=== PATIENT | female | born 2000 | race Two or more races ===

== ENCOUNTER 2024-07-24 04:54 | Inpatient (IN) | payer MEDICAID ==
[~2024-07-24] VITALS: Ht 165.1 cm; Wt 74.8 kg
[2024-07-24] MEDS: OXYTOCIN 10UNIT/ML 1ML VIAL ONE (05:09)
[2024-07-24] MEDS ORDERED: WITCH HAZEL-GLYCERIN PAD TOP ONE (05:10)
[2024-07-24] MEDS ORDERED: PHISODERM TOP SOLN 240ML BTL TOP ONE (05:10)
[2024-07-24] MEDS ORDERED: DERMOPLAST 60ML BOTTLE TOP ONE (05:10)
[2024-07-24] MEDS: LIDOCAINE 2%HCL (LOCAL ANESTH.) INJ 10ml MDV ONE (05:10)
[2024-07-24] MEDS ORDERED: LACT. RINGERS/OXYTOCIN 20UNITS 1,000 ML IV ONE (05:10)
[2024-07-24] MEDS: PENICILLIN G POT 5MIL/D5 50ML 50 ML IV ONE ×2 (05:11→05:15)
[2024-07-24] MEDS ORDERED: DERMOPLAST 60ML BOTTLE TOP PRN (05:15)
[2024-07-24] MEDS ORDERED: WITCH HAZEL-GLYCERIN PAD TOP PRN (05:15)
[2024-07-24] MEDS ORDERED: LIDOCAINE 2%HCL (LOCAL ANESTH.) INJ 20ML MDV IJ PRN (05:15)
[2024-07-24] MEDS ORDERED: LACTATED RINGER'S 1,000 ML IV SCH (05:15)
[2024-07-24] MEDS ORDERED: PHISODERM TOP SOLN 240ML BTL TOP PRN (05:15)
--- NOTE | 2024-07-24 05:45 | DVHHP2 ---
OB CC & HPI Date Date of Admission: Jul 24, 2024 Patient Identification: : 1 Para: 0 EDC: Jul 24, 2024 EGA: 40w 0d Chief Complaints: Reason for admission: active labor Other reason for admission: Rupture of membranes>18hours Admission Nurse Assessment Rev: Yes History of Present Complaints 23yo G1,0000 EDC 07/24/[address] to r/o labor. Reports contractions started 10am 07/23/24, became stronger and regular 2-3hours ago. Was discharged home from another hospital at 1am; VE then was 2cm. Contractions beame stronger and less than 5minutes apart at 1:30am She reports she had bloody show at 0430 on 07/23/24 and leakage of fluid that started at 10am on 07/23/24 She reports active fetus, no DYER, vision changes or epigastric pain. Had care in [place] Bloos type O pos, GBS culture negative Past Medical History Cardiac: No pertinent Hx Pulmonary: No pertinent Hx Central Nervous System: No pertinent Hx GI: No pertinent Hx Hemotology/Oncology: No pertinent Hx Hepatobiliary: No pertinent Hx Psychiatric: No pertinent Hx Musculoskeletal: No pertinent Hx Rheumotologic: No pertinent Hx Infectious Disease: No peritnent Hx ENT: No pertinent Hx Renal/: No pertinent Hx Endocrine: No pertinent Hx Dermatology: No pertinent Hx Past Surgical History: No pertinent Hx OB History OB History Care: [facility] Ultrasounds: Normal mid trimester US Obstetrical Complications: None Medical Complications: None Allergies: Coded Allergies: NO KNOWN ALLERGIES (Unverified , 07/24/24) Allergies NKDA Current Medications Current Medications Medications (Trade) Dose Ordered Sig/Elisabeth Route PRN Reason Start Time Stop Time Status Last Admin Lactated Ringer's 1,000 ml @ 125 mls/hr Q8H IV 07/24/24 05:15 UNV Witch Debi (Tucks) 1 pad PRN PRN TOP PERINEAL AREA DISCOMFORT 07/24/24 05:15 UNV Sodium Lauryl Sulfate (Phisoderm) 240 ml PRN PRN TOP PERINEAL AREA DISCOMFORT 07/24/24 05:15 UNV Benzocaine (Dermoplast) 1 applic PRN PRN TOP PERINEAL AREA DISCOMFORT 07/24/24 05:15 UNV Lidocaine HCl (Xylocaine) 20 ml ONCE PRN IJ PERINEAL AREA DISCOMFORT 07/24/24 05:15 UNV Family & Social History Family/Social History Past Family/Social History: Non-Contributory Blood Type: O+ Rubella: not immune RPR/VDRL: Negative GBS Status: Negative HBsAG: Negative Review of Systems Constitutional: No symptom reported Ears, Nose, & Throat: No symptom reported Eyes: No symptom reported Pulmonary/Respiratory: No symptom reported Cardiovascular: No symptom reported Gastrointestinal: No symptom reported Genitourinary: No symptom reported Musculoskeletal: No symptom reported Skin: No symptom reported Psychiatric: No symptom reported Endocrine: No symptom reported Hemotologic/Lymphatic: No symptom reported OB Admission Exam Physical Exam HEENT: NCAT, Moist Membranes Heart: Rhythm Normal Lungs: Clear Abdomen: Non tender Extremities: Normal Reflexes: Normal Cervical Dilatation: 9cm Effacement: 100% Station: 0 Membranes: Ruptured Heart Rate: 130's Accelerations: Accelerations Present Long-Term Variability: Average (6-25) Contractions on Admission: < 5 Minutes Apart Date/Time Contractions Began: 07/23/24 10:00am Frequency of Contractions: 1-2/hour Duration: 60 Intensity: Mild OB Plan Plan Admitting Diagnosis: IUP at 40weeks Active labor Labor Plan: Expectant Management Other Plan: Labor Process, Risks, benefits, of available management options discussed, including starting with expectant management, augmentation if indicated, Internal monitoring of UCs & FHT, amnioinfusion etc only when indicated Patient agrees to starting with expectant management at this time; other interventions as indicated Informed Consent obtained. Consent for possible blood transfusion obtained. All questions answered. Admit to Place for scheduled IOL Routine L&D admission orders Misoprostol / Cervidil per protocol EFM per policy & protocol Intrauterine resuscitation PRN Infection prophylaxis with Penicillin IVPB for prolonged rupture of membranes Labor analgesia PRN Encourage frequent position change and ambulation to facilitate labor & de scent Supportive Care Anticipate JOANN HOOVER CNM Jul 24, 2024 05:45
[2024-07-24 05:52] LABS: Basophils # (auto) 0 10 ^3/uL (0-0.2); Basophils % (auto) 0.4 % (0.0-2.0); Eosinophils # (auto) 0 10 ^3/uL (0-0.8); Eosinophils % (auto) 0.2 % (0.0-7.0); Hematocrit 34.4 % (36.0-46.0); Hemoglobin 11.5 g/dL (12.2-16.2); Lymphocytes # (auto) 1.9 10 ^3/uL (0.4-5.4); Lymphocytes % (auto) 16.3 % (10.0-50.0); Mean Corpuscular Hemoglobin 28.4 pg (28.0-32.0); Mean Corpuscular Hgb Conc. 33.6 g/dL (32.0-36.0); Mean Corpuscular Volume 84.7 fL (80.0-100.0); Monocytes # (auto) 0.6 10 ^3/uL (0-1.3); Monocytes % (auto) 4.9 % (0.0-12.0); Neutrophils # (auto) 9.3 10 ^3/uL (1.6-8.6); Neutrophils % (auto) 78.2 % (37.0-80.0); Platelet Count (auto) 238 10^3/uL (140-450); Red Blood Cells 4.06 10^6/uL (4.0-5.20); Red Cell Distribution Width 15.5 % (11.8-14.3); White Blood Cell 11.9 10^3/uL (4.4-10.8)
[2024-07-24 06:12] LABS: INR 0.92 (0.9-1.15); Partial Thromboplastin Time 27.6 SEC (24.5-34.5); Prothrombin Time 9.8 sec (9.3-11.8)
[2024-07-24 06:33] LABS: Alanine Aminotransferase 19 U/L (7-40); Albumin 4.1 g/dL (3.2-4.8); Anion Gap 12 (5-15); Aspartate Aminotransferase 20 U/L (13-40); BUN/Creatinine Ratio 10.2 (10.0-20.0); Bilirubin, Total 0.4 mg/dL (0.2-1.0); Calcium 9.8 mg/dL (8.7-10.4); Chloride 105 mmol/L (98-107); Glucose 94 mg/dL (74-106); Potassium 3.7 mmol/L (3.5-5.1); Total Protein 6.5 g/dL (5.7-8.2)
[2024-07-24 06:35] LABS: Alkaline Phosphatase 211 U/L (46-116); Blood Urea Nitrogen 6 mg/dL (9-23); Carbon Dioxide 18 mmol/L (20-31); Sodium 135 mmol/L (136-145)
[2024-07-24 06:54] LABS: Hepatitis B Surface Antibody Positive (Negative)
[2024-07-24 07:12] LABS: Hepatitis C Antibody Negative (Negative)
[2024-07-24] MEDS ORDERED: ACETAMINOPHEN 325 MG TAB PO PRN (08:00)
[2024-07-24] MEDS ORDERED: ONDANSETRON ODT 4 MG TAB PO PRN (08:00)
[2024-07-24 08:12] LABS: Amphetamine Screen, Urine Neg (NEGATIVE)
[2024-07-24 08:15] LABS: Barbiturate Scree,Urine Neg (NEGATIVE); Benzodiazephine Screen, Urine Neg (NEGATIVE); Cannabinoid Screen, Urine Neg (NEGATIVE); Cocaine Screen, Urine Neg (NEGATIVE)
[2024-07-24 08:17] LABS: Opiate Scree,Urine Neg (NEGATIVE); Phencyclidine Screen, Urine Neg (NEGATIVE)
--- NOTE | 2024-07-24 08:48 | LDN2 ---
Labor and Delivery Note Date 07/24/24 Age 23 1 Para 1 AB 0 EDC 07/24/24 EGA 40w 0d Diagnosis IUP @ 40weeks Prolonged Ruptured Of Membranes Vaginal Delivery: VTX Vacuum Assisted: No Placenta: Spontaneous Sex: Female Weight 3100g (6Lbs 13oz) Apgars 7 @one minute and 9 at five minutes of life Nuchal Cord Transected: No Amniotic Fluid: Clear Episiotomy: No Extension: Yes Repaired with 2-0 Chromic suture EBL 350mL Labs Laboratory Tests 07/24/24 05:35: HIV (1&2) Antibody Negative Blood Bank 07/24/24 05:35: Blood Type O POSITIVE Complications none Conditions Mother and baby stable Hand Collator Compa Mitchell Comments/Significant Med Ruddy At 0619, 23yo, now delivered a viable Female by w/ score of 7 at one & 9 at five minutes of life. LEANNA position Infant placed skin to skin on pt's chest. Cord clamped and cut after pulsation ceased. Cord blood sent. Intact 3-vessel cord placenta delivered spontaneously, Jorge L. Pitocin IV bolus started. Placenta sent to pathology. Vagina and perineum inspected, Second degree bilateral vaginal laceration noted. Same repaired with 2-0 Chromic suture Cervix/vagina inspected.via speculum exam. Cervix intact. Fundus at U, firm, midline, and light lochia. QBL 350ml. VSS. Count correct x2. Patient to care and baby to couplet care, both stable. Rectal mucosa and sphincter intact. Rectal exam performed, WNL, not involved. JOANN HOOVER CNM Jul 24, 2024 08:48
[2024-07-24] MEDS: IBUPROFEN 600 MG TAB PO PRN (09:24)
[2024-07-24 11:03] VITALS: BP 101/59; PULSE 103; RESP 16; TEMP 98; O2SAT 97
[2024-07-24 15:00] VITALS: BP 106/61; PULSE 91; RESP 18; TEMP 98.1; O2SAT 98
[2024-07-24 19:30] VITALS: BP 109/64; PULSE 79; RESP 18; TEMP 98.1; O2SAT 97
[2024-07-24] MEDS: DOCUSATE SOD 100 MG CAP PO SCH (22:25)
[2024-07-24 23:00] VITALS: BP 88/52; PULSE 90; RESP 16; TEMP 97.7; O2SAT 97
[2024-07-25 03:00] VITALS: BP 90/53; PULSE 85; RESP 17; TEMP 98.2; O2SAT 97
--- NOTE | 2024-07-25 03:10 | DVHDS2 ---
Discharge Summary Date of Admission Jul 24, 2024 at 04:54 Date of Discharge: Jul 25, 2024 Admitting Diagnosis Term IUP, labor Labs/Diagnostic Data: Laboratory Results Test 07/24/24 06:40 07/24/24 05:35 Urine Opiates Screen Neg (NEGATIVE) Urine Fentanyl Screen Neg (NEGATIVE) Urine Barbiturates Screen Neg (NEGATIVE) Urine Phencyclidine Screen Neg (NEGATIVE) Urine Amphetamines Screen Neg (NEGATIVE) Urine Benzodiazepines Screen Neg (NEGATIVE) Urine Cocaine Screen Neg (NEGATIVE) Urine Cannabinoids Screen Neg (NEGATIVE) White Blood Count 11.9 10^3/uL (4.4-10.8) Red Blood Count 4.06 10^6/uL (4.0-5.20) Hemoglobin 11.5 g/dL (12.2-16.2) Hematocrit 34.4 % (36.0-46.0) Mean Corpuscular Volume 84.7 fL (80.0-100.0) Mean Corpuscular Hemoglobin 28.4 pg (28.0-32.0) Mean Corpuscular Hemoglobin Concent 33.6 g/dL (32.0-36.0) Red Cell Distribution Width 15.5 % (11.8-14.3) Platelet Count 238 10^3/uL (140-450) Mean Platelet Volume 7.9 fL (6.9-10.8) Neutrophils (%) (Auto) 78.2 % (37.0-80.0) Lymphocytes (%) (Auto) 16.3 % (10.0-50.0) Monocytes (%) (Auto) 4.9 % (0.0-12.0) Eosinophils (%) (Auto) 0.2 % (0.0-7.0) Basophils (%) (Auto) 0.4 % (0.0-2.0) Neutrophils # (Auto) 9.3 10 ^3/uL (1.6-8.6) Lymphocytes # (Auto) 1.9 10 ^3/uL (0.4-5.4) Monocytes # (Auto) 0.6 10 ^3/uL (0-1.3) Eosinophils # (Auto) 0 10 ^3/uL (0-0.8) Basophils # (Auto) 0 10 ^3/uL (0-0.2) Nucleated Red Blood Cells 0.0 % Prothrombin Time 9.8 sec (9.3-11.8) Prothrombin Time INR 0.92 (0.9-1.15) Activated Partial Thromboplast Time 27.6 SEC (24.5-34.5) Sodium Level 135 mmol/L (136-145) Potassium Level 3.7 mmol/L (3.5-5.1) Chloride Level 105 mmol/L (98-107) Carbon Dioxide Level 18 mmol/L (20-31) Anion Gap 12 (5-15) Blood Urea Nitrogen 6 mg/dL (9-23) Creatinine 0.59 mg/dL (0.550-1.02) Glomerular Filtration Rate Calc 129 mL/min (>90) BUN/Creatinine Ratio 10.2 (10.0-20.0) Serum Glucose 94 mg/dL (74-106) Calcium Level 9.8 mg/dL (8.7-10.4) Total Bilirubin 0.4 mg/dL (0.2-1.0) Aspartate Amino Transferase (AST) 20 U/L (13-40) Alanine Aminotransferase (ALT) 19 U/L (7-40) Alkaline Phosphatase 211 U/L (46-116) Total Protein 6.5 g/dL (5.7-8.2) Albumin 4.1 g/dL (3.2-4.8) Hepatitis B Surface Antibody Positive (Negative) Hepatitis C Antibody Negative (Negative) HIV (1&2) Antibody Negative (Negative) Other Laboratory Tests 07/24/24 05:35 Brief Hx & Hospital Course: Normal labor and delivery, s/p Uncomplicated Normal course Operations or Procedures with perineal laceration repair Condition at Discharge: Stable Final Diagnosis/Problems List Term , delivered Discharge Disposition: Home Discharge Instruct/Medications Diet: Regular Activity: Light activity Activity comment: Pelvic rest x 6 wk Follow Up/Referral: [address] Caputo Medications: Ibuprofen prn pain/cramps Discharge Statement: "Patient was advised to return to the ER or call 911 if any headaches, dizziness, shortness of breath, chest pain, abdominal pain, bleeding, fevers, or worsening of medical condition. Patient was counseled about treatment plan, medications, possible side effects, patientverbalized understanding. All questions were answered to the best of my ability. This discharge took greater then 30 minutes in planning, reviewing documentation, counseling the patient, and discussing with other team members." ASSESSMENT ASSESSMENT Assessment CAROL HURTADO DO Jul 25, 2024 03:10
--- NOTE | 2024-07-25 03:29 | DVHPN2 ---
Progress Note Date Seen: Jul 25, 2024 Subjective PPD#1 s/p doing well. no acute complaints Lochia mild. vital signs Vital Sign Date Time Temp Pulse Resp B/P (MAP) Pulse Ox O2 Delivery O2 Flow Rate FiO2 07/24/24 23:00 97.7 90 16 88/52 (64) 97 97.7 07/24/24 19:30 Room Air Total Intake and Output 07/24/24 07/24/24 07/25/24 15:00 23:00 07:00 Output Total 1300 ml Balance -1300 ml medications Current Medications Medications Dose Ordered Sig/Elisabeth Route Start Time Stop Time Status Last Admin Dose Admin Lactated Ringer's 1,000 ml @ 125 mls/hr Q8H IV 07/24/24 05:15 Cancel Witch Debi 1 pad PRN PRN TOP 07/24/24 05:15 Sodium Lauryl Sulfate 240 ml PRN PRN TOP 07/24/24 05:15 Benzocaine 1 applic PRN PRN TOP 07/24/24 05:15 Lidocaine HCl 20 ml ONCE PRN IJ 07/24/24 05:15 Cancel Ibuprofen 600 mg Q6HP PRN PO 07/24/24 08:00 07/24/24 20:14 600 MG Acetaminophen 650 mg Q4HP PRN PO 07/24/24 08:00 Ondansetron HCl 4 mg Q4HPRN PRN PO 07/24/24 08:00 Docusate Sodium 200 mg HS PO 07/24/24 22:00 07/24/24 22:25 200 MG laboratory and microbiology Laboratory Tests 07/24/24 05:35 Test 07/24/24 05:35 Range/Units Serum Glucose 94 74-106 mg/dL Objective O: AFVSS Chest: heart and lung sounds normal. Abd soft, non-tender, fundus firm, BS, no rebound or guarding, Ext Neg Homans, Non-tender, edema Lochia - minimal Labs reviewed Assessment/Plan PPD#1 s/p doing well D/C planning today Continue current care see D/C Summary Plan discussed with: Patient CAROL HURTADO DO Jul 25, 2024 03:29
[2024-07-25] MEDS ORDERED: IBU600T PO (03:31)
[2024-07-25 04:16] LABS: Basophils # (auto) 0 10 ^3/uL (0-0.2); Basophils % (auto) 0.3 % (0.0-2.0); Eosinophils # (auto) 0 10 ^3/uL (0-0.8); Eosinophils % (auto) 0.3 % (0.0-7.0); Hematocrit 25.6 % (36.0-46.0); Hemoglobin 8.6 g/dL (12.2-16.2); Lymphocytes # (auto) 2.7 10 ^3/uL (0.4-5.4); Lymphocytes % (auto) 20.9 % (10.0-50.0); Mean Corpuscular Hemoglobin 28.6 pg (28.0-32.0); Mean Corpuscular Hgb Conc. 33.4 g/dL (32.0-36.0); Mean Corpuscular Volume 85.6 fL (80.0-100.0); Monocytes # (auto) 0.9 10 ^3/uL (0-1.3); Monocytes % (auto) 6.8 % (0.0-12.0); Neutrophils # (auto) 9.1 10 ^3/uL (1.6-8.6); Neutrophils % (auto) 71.7 % (37.0-80.0); Platelet Count (auto) 205 10^3/uL (140-450); Red Blood Cells 2.99 10^6/uL (4.0-5.20); Red Cell Distribution Width 15.8 % (11.8-14.3); White Blood Cell 12.7 10^3/uL (4.4-10.8)
[2024-07-25 06:06] LABS: RPR Non Reactive (Non Reactive)
[2024-07-25 07:05] VITALS: BP 103/58; PULSE 83; RESP 15; TEMP 98.3; O2SAT 97
[2024-07-25 07:06] LABS: Rubella Antibodies, IgG <0.90 index (Immune >0.99)
[2024-07-25 11:00] VITALS: BP 101/61; PULSE 90; RESP 20; TEMP 98.1; O2SAT 98
== END 2024-07-25 15:34 | disposition home or self-care (01) | DRG 560 ==
LOC: LDRP 04:54 → OBSVTOIN 04:54 → LDRP 08:46
PROVIDERS: ADMIT Obstetrics & Gynecology; ATTEND Obstetrics & Gynecology
PROC: 10E0XZZ Delivery of Products of Conception, External Approach (ICD-10-PCS; principal; 2024-07-24)
PROC: 0KQM0ZZ Repair Perineum Muscle, Open Approach (ICD-10-PCS; 2024-07-24)
DX: O70.0 First degree perineal laceration during delivery (principal); Z37.0 Single live birth; R71.0 Precipitous drop in hematocrit; O42.92 Full-term premature rupture of membranes, unspecified as to length of time between rupture and onset of labor; Z3A.40 40 weeks gestation of pregnancy
CPT/HCPCS: 36415; 59025; 59409; 80053; 80307; 85025; 85610; 85730; 86592; 86703; 86706; 86762; 86803; 86850; 86900; 86901; 94760; 96360; 96361; 96365; G0378; J2003; J2540; J2590